=== PATIENT | female | born 1940 | race Caucasian/White ===

== ENCOUNTER → 2017-02-06 | Outpatient (CLI) | payer OTHER ==
[~2017-02-06] MED LIST: ASPIR 8181 MG PO; BENEFIBER1 EAC1 PO; GLUCOTROL5 MG PO; LEVEMIR FL100 UNIT/2 SUBQ; LOSARTAN POTASS50 MG PO; METFORMIN PO; MOBIC15 MG PO; MULTI VITAMIN1 EACH PO; NEURONTIN100 MG PO; SIMVASTATIN40 MG PO; VITAMIN D 5050000 I1 PO; VITAMINC500 PO
== END ==
LOC: RAD 01:46
DX: Z12.31 Encounter for screening mammogram for malignant neoplasm of breast (principal)